=== PATIENT | female | born 1955 | race Caucasian/White ===

== ENCOUNTER → 2018-07-06 | Outpatient (CLI) | payer MEDICARE ==
[2018-07-06 08:40] LABS: Basophils # (A) 0.1 k/uL (0-0.2); Basophils % (A) 0 %; Eosinophils # (A) 0.2 k/uL (0-0.7); Eosinophils % (A) 1 %; HGB 13.5 gm/dL (11.4-16.0); Lymphocytes # (A) 3.9 k/uL (1.0-4.8); Lymphocytes % (A) 34 %; MCH 28.4 pg (25.0-35.0); MCHC 31.4 g/dL (31.0-37.0); MCV 90.4 fL (80.0-100.0); Mean Platelet Volume 7.1; Monocytes # (A) 0.7 k/uL (0-1.0); Monocytes % (A) 6 %; Neutrophils # (A) 6.6 k/uL (1.3-7.7); Neutrophils % (A) 57 %; Platelet Count 335 k/uL (150-450); RBC 4.76 m/uL (3.80-5.40); RDW 15.3 % (11.5-15.5); WBC 11.5 k/uL (3.8-10.6)
[2018-07-06 08:57] LABS: Albumin 3.5 g/dL (3.5-5.0); Calcium 9.4 mg/dL (8.4-10.2); Potassium 4.4 mmol/L (3.5-5.1); Total Bilirubin 0.4 mg/dL (0.2-1.3)
[2018-07-06 09:07] LABS: T4, Free (Free Thyroxine) 1.22 ng/dL (0.78-2.19)
[2018-07-06 16:25] LABS: Vitamin D 25 Hydroxy 26.6 ng/mL (30.0-100.0)
[2018-07-06 19:10] LABS: Hemoglobin A1C 5.8 % (4.0-6.0)
== END | disposition home or self-care (01) ==
LOC: LABWHC1 07:42
PROVIDERS: ATTEND Family Medicine
DX: E03.9 Hypothyroidism, unspecified (principal); E56.9 Vitamin deficiency, unspecified; M54.5 Low back pain; Z13.228 Encounter for screening for other metabolic disorders; Z13.220 Encounter for screening for lipoid disorders
CPT/HCPCS: 36415; 80053; 80061; 82306; 82607; 83036; 84439; 84443; 85025

== ENCOUNTER → 2018-07-26 | Outpatient (CLI) | payer MEDICARE ==
--- NOTE | 2018-07-27 11:00 | MM ---
Reason for exam: screening (asymptomatic). Last mammogram was performed 3 years and 4 months ago. History: Patient is postmenopausal. Physical Findings: A clinical breast exam by your physician is recommended on an annual basis and results should be correlated with mammographic findings. MG 3D Screening Mammo W/Cad Bilateral CC and MLO view(s) were taken. Prior study comparison: April 05, 2015, bilateral MG diagnostic mammo w CAD LOKESH. April 19, 2014, right breast MG work up mamm w CAD RT. There are scattered fibroglandular densities. There is a stable right upper outer quadrant mass back to 2013. There are benign appearing round calcifications bilaterally. No suspicious abnormality. No significant changes when compared with prior studies. ASSESSMENT: Benign, BI-RAD 2 RECOMMENDATION: Routine screening mammogram of both breasts in 1 year.
--- NOTE | 2018-07-27 11:51 | BD ---
EXAMINATION TYPE: Axial Bone Density DATE OF EXAM: 07/26/2018 COMPARISON: NONE CLINICAL HISTORY: Postmenopausal female. Osteoporosis screening. Height: 5 FT 1IN Weight: 209 FRAX RISK QUESTIONS: Family History (Parent hip fracture): YES RISK FACTORS HISTORY OF: Surgery to Spine/Hip(right/left)/Wrist (right/left): LUMBAR SURG When: 2000Diet low in dairy products/other sources of calcium: Postmenopausal woman: AGE 53 MEDICATIONS: Thyroid Medications: YES Which medication: LEVOTHYROXINE How Lon YEARS Additional Medications: LEVOTHYROXINE ,MIHAI, B12 D3 Additional History: EXAM MEASUREMENTS: Bone mineral density about the R hip (g/cm2): 1.070 Bone mineral density about the L hip (g/cm2): 0.974 T Score values are as follows: -----R Neck: 0.2 -----L Neck: -0.5 -----R Total: 1.2 -----L Total: 1.2 BASELINE Bone mineral density about the L Wrist (g/cm2): 0.698 T Score values are as follows: -----Dist. R+U: 0.9 -----Prox. R+U: 0.0 -----Radius total: 0.4 BASELINE IMPRESSION: Normal (Values between +1 and -1 indicate normal bone mass). Consider repeating this study in 5 year s or sooner if there is some new clinical indication. NOTE: T-SCORE=SD OF THE YOUNG ADULT MEAN.
== END ==
LOC: RADMAMWWP 14:25
PROVIDERS: ATTEND Family Medicine
DX: Z12.31 Encounter for screening mammogram for malignant neoplasm of breast (principal); M89.9 Disorder of bone, unspecified; N95.1 Menopausal and female climacteric states
CPT/HCPCS: 77063; 77067; 77080

== ENCOUNTER → 2018-10-05 | Outpatient (CLI) | payer MEDICARE | LOC: LABWHC1 10:24 | PROVIDERS: ATTEND Otolaryngology | DX: J30.89 Other allergic rhinitis (principal) | CPT/HCPCS: 36415 ==

== ENCOUNTER → 2018-10-20 | Outpatient (CLI) | payer MEDICARE ==
--- NOTE | 2018-10-20 08:51 | CT ---
EXAMINATION TYPE: CT neck chest w con DATE OF EXAM: 10/20/2018 COMPARISON: none HISTORY: Hoarse voice. CT DLP: 1242 mGycm CONTRAST: CT scan of the neck is performed with IV Contrast, patient injected with 100 mL of Isovue 300. Contrast enhanced CT of the neck was performed from the skull base through the lung apices. AIRWAY: The supraglottic, glottic, and subglottic portions of the airway appear patent and free of mass. SALIVARY GLANDS: The submandibular and parotid glands are free of mass or inflammatory process. THYROID GLAND: No nodules or masses seen. LYMPH NODES: No adenopathy seen greater than 1cm. LUNG APICES: No nodule or mass is seen. OTHER: Vascular structures are patent. No significant degenerative change of the cervical spine. N o abscess seen. IMPRESSION: No significant abnormality to account for the patient's symptoms. EXAMINATION TYPE: CT neck chest w con DATE OF EXAM: 10/20/2018 COMPARISON: None HISTORY: Hoarse voice. CT DLP: 1242 mGycm Automated exposure control for dose reduction was used. CONTRAST: CT scan of the chest is performed with IV Contrast, patient injected with 100 mL of Isovue 300. FINDINGS: LUNGS: Mild upper lobe emphysematous changes identified. Azygos lobe and fissure noted. The lungs are grossly clear, there is no concerning parenchymal mass or nodule identified. There is no pleural e ffusion or pneumothorax seen. The tracheobronchial tree is patent. MEDIASTINUM: There are no greater than 1 cm hilar or mediastinal lymph nodes. No pericardial effusi on is seen. Thoracic aorta is of normal caliber. The heart is not enlarged. UPPER ABDOMEN: Fatty hepatic infiltration. Scattered hepatic cysts. OTHER: No additional significant abnormality is seen.
== END ==
LOC: RADCTMAIN 07:08
PROVIDERS: ATTEND Otolaryngology
DX: R49.0 Dysphonia (principal)
CPT/HCPCS: 82565; 84520; 70491; 71260; 36415; Q9967

== ENCOUNTER → 2019-01-30 | Outpatient (CLI) | payer MEDICARE ==
[2019-01-30 10:42] LABS: Basophils # (A) 0.1 k/uL (0-0.2); Basophils % (A) 1 %; Eosinophils # (A) 0.3 k/uL (0-0.7); Eosinophils % (A) 4 %; HCT 46.5 % (34.0-46.0); HGB 14.8 gm/dL (11.4-16.0); Lymphocytes # (A) 2.5 k/uL (1.0-4.8); Lymphocytes % (A) 34 %; MCHC 31.9 g/dL (31.0-37.0); MCV 91.1 fL (80.0-100.0); Mean Platelet Volume 6.6; Monocytes # (A) 0.5 k/uL (0-1.0); Monocytes % (A) 6 %; Neutrophils % (A) 54 %; Platelet Count 297 k/uL (150-450); RBC 5.11 m/uL (3.80-5.40); RDW 14.9 % (11.5-15.5); WBC 7.5 k/uL (3.8-10.6)
[2019-01-30 16:44] LABS: T4, Free (Free Thyroxine) 1.4 ng/dL (0.80-1.80)
== END ==
LOC: LABWHC1 09:14
PROVIDERS: ATTEND Physical Medicine & Rehabilitation
DX: Z01.812 Encounter for preprocedural laboratory examination (principal); J06.9 Acute upper respiratory infection, unspecified; E03.9 Hypothyroidism, unspecified; M85.9 Disorder of bone density and structure, unspecified; M75.41 Impingement syndrome of right shoulder; N28.9 Disorder of kidney and ureter, unspecified
CPT/HCPCS: 36415; 82565; 82607; 84439; 84443; 84520; 85025

== ENCOUNTER → 2020-08-20 | Outpatient (CLI) | payer MEDICARE, OTHER ==
--- NOTE | 2020-08-20 13:54 | CT ---
EXAMINATION TYPE: CT abdomen pelvis w con DATE OF EXAM: 08/20/2020 COMPARISON: None HISTORY: Hematuria CT DLP: 2252.5 mGycm Automated exposure control for dose reduction was used. TECHNIQUE: Helical acquisition of images was performed from the lung bases through the pelvis. CONTRAST: Performed without Oral Contrast and with IV Contrast, patient injected with 100 mL of Isovue 300. FINDINGS: LUNG BASES: Normal. LIVER: Too small to characterize hypodense lesions of the liver, most likely hepatic cysts. BILIARY SYSTEM: Normal. PANCREAS: Normal. SPLEEN: Normal. ADRENALS: Normal. KIDNEYS: No hydronephrosis or hydroureter bilaterally. There are bilateral peripelvic renal cysts. To o small to characterize hypodense lesions of the right kidney. The ureters demonstrate no evidence of urothelial thickening or dilatation. BOWEL: No obstruction or thickening. Colonic diverticulosis. No acute diverticulitis. Normal appendi x. PERITONEUM: No pneumoperitoneum. No free fluid. LYMPH NODES: No lymphadenopathy. Nonenlarged lymph nodes within the left lower quadrant adjacent to the sigmoid colon are seen (4:58), measuring up to 5 mm. PELVIS: Normal. VASCULATURE: No abdominal aortic aneurysm. MUSCULOSKELETAL: Degenerative changes of the spine. IMPRESSION: 1. No findings to explain patient's hematuria. No hydroureteronephrosis. 2. Bilateral peripelvic renal cysts, and too small to characterize hypodense lesions on the right. 3. Colonic diverticulosis. No acute diverticulitis. Numerous nonenlarged left lower quadrant lymph n odes along the sigmoid colon may be reactive to extensive diverticular disease. Consider correlation with colonoscopy.
== END | disposition home or self-care (01) ==
LOC: RADCTMAIN 08:47
PROVIDERS: ATTEND Family Medicine
DX: K57.30 Diverticulosis of large intestine without perforation or abscess without bleeding (principal); N28.1 Cyst of kidney, acquired; K92.89 Other specified diseases of the digestive system
CPT/HCPCS: 82565; 84520; 74177; 36415; Q9967

== ENCOUNTER → 2021-09-03 | Outpatient (CLI) | payer MEDICARE, OTHER ==
--- NOTE | 2021-09-04 11:51 | MM ---
Reason for exam: screening (asymptomatic). Last mammogram was performed 3 years and 1 month ago. History: Patient is postmenopausal. Physical Findings: A clinical breast exam by your physician is recommended on an annual basis and results should be correlated with mammographic findings. MG 3D Screening Mammo W/Cad Bilateral CC and MLO view(s) were taken. Prior study comparison: July 26, 2018, bilateral MG 3d screening mammo w/cad. April 05, 2015, bilateral MG diagnostic mammo w CAD [facility]. There are scattered fibroglandular densities. No significant changes when compared with prior studies. ASSESSMENT: Benign, BI-RAD 2 RECOMMENDATION: Routine screening mammogram of both breasts in 1 year.
== END | disposition home or self-care (01) ==
LOC: RADMAMWWP 09:37
PROVIDERS: ATTEND Family Medicine
DX: Z12.31 Encounter for screening mammogram for malignant neoplasm of breast (principal); Z78.0 Asymptomatic menopausal state
CPT/HCPCS: 77063; 77067

== ENCOUNTER → 2021-09-25 | Outpatient (CLI) | payer MEDICARE, OTHER ==
--- NOTE | 2021-09-25 13:48 | BD ---
EXAMINATION TYPE: Axial Bone Density DATE OF EXAM: 09/25/2021 COMPARISON: 07.26.2018 CLINICAL HISTORY: 66 YR OLD FEMALE......ICD-10 CODE: M89.9 DISORDER OF BD, N95.1 MENOPAUSAL Height: 61 Weight: 214 FRAX RISK QUESTIONS: Glucocorticoids (More than 3mos): YES (Ex: prednisone, prednisolone, methylprednisolone, dexamethasone, and hydrocortisone). History of Fracture in Adulthood: YES RISK FACTORS HISTORY OF: HX OF LT ANKLE FX, Surgery to Spine FOR DISCS ONLY, AND NOW STEROIDAL INJECTIONS Postmenopausal woman: YES AT ABOUT 53 YRS OLD Hyperparathyroidism: NO Adrenal Insufficiency: NO MEDICATIONS: Prednisone or other steroids: INJECTIONS INTO SPINE, STEROIDAL FOR ABOUT 3 YRS NOW Thyroid Medications: YES, SYNTHROID FOR OVER 20 YRS NOW Additional Medications: NOTHING ADDITIONAL TO ADD HERE EXCEPT MEDS FOR SINUS INFECTION AT PRESENT, A NTIBIOTIC, PREDNISONE, Additional History: BULGING SPINAL DISCS, NSAIDS, INJECTIONS IN SHOULDER ALSO, OSTEOARTHRITIS EXAM MEASUREMENTS: Bone mineral densitometry was performed using the rPath System. Bone mineral density as measured about the Lumbar spine is: ----- L1-L4(G/cm2): 1.148 T Score Values are as follows: ----- L1: -0.7 ----- L2: -1.2 ----- L3: 0.0 ----- L4: 0.3 ----- L1-L4: -0.3 Bone mineral density FIRST DEXA STUDY OF HER SPINE, OMITTED ON THE 07.26.2018 STUDY Bone mineral density about the R hip (g/cm2): 1.162 Bone mineral density about the L hip (g/cm2): 1.157 T Score values are as follows: -----R Neck: 0.1 -----L Neck: -0.5 -----R Total: 1.2 -----L Total: 1.2 Bone mineral density has: Increased 0.1% since study of: 07.26.2018 FRAX%s: THERE IS A 17.4% CHANCE FOR A MAJOR OSTEOPOROTIC FX AND A 1.1% FOR HIPS.......PROBABILITY FOR FX IN 10 YRS TIME IMPRESSION: No evidence for osteoporosis or osteopenia. NOTE: T-SCORE=SD OF THE YOUNG ADULT MEAN.
== END | disposition home or self-care (01) ==
LOC: RADBDWWP 10:34
PROVIDERS: ATTEND Family Medicine
DX: Z78.0 Asymptomatic menopausal state (principal)
CPT/HCPCS: 77080

== ENCOUNTER → 2022-02-18 | Day surgery (SDC) | payer MEDICARE ==
[2022-02-16 08:54] VITALS: BMI 38.4
[~2022-02-18] MED LIST: LACTATED RINGERS 1,000 ML IV ONE; LACTATED RINGERS 1,000 ML IV SCH; PROPOFOL 10 MG/ML 20 ML VIAL IV ONE
[2022-02-18 10:55] VITALS: RESP 16; TEMP 97.1
--- NOTE | 2022-02-18 11:10 | P.PCN ---
Date of Procedure: 02/18/22 Procedure(s) Performed: BRIEF HISTORY: Patient is a 66-year-old pleasant white female scheduled for an elective colonoscopy as a part of evaluation of Hemoccult-positive stool. Her mother was dilated with colon cancer at age 80. PROCEDURE PERFORMED: Colonoscopy. PREOPERATIVE DIAGNOSIS: Hemoccult-positive stool and family history of colon cancer. IV sedation per Anesthesia. PROCEDURE: After informed consent was obtained, the patient, was brought into the endoscopy unit. IV sedation was administered by Anesthesia under continuous monitoring. Digital rectal examination was normal. Initially the Olympus CF-160 flexible video colonoscope was then inserted in the rectum, gradually advanced into the cecum with mild to moderate difficulty. Careful examination was performed as the scope was gradually being withdrawn. Ileocecal valve and the appendiceal orifice were visualized and appeared normal. Prep was excellent. Mucosa of the cecum, ascending colon, transverse colon, descending colon, sigmoid colon, and rectum appeared normal. Moderate left-sided diverticulosis. Retroflexion was performed in the rectum and no lesions were seen. The patient tolerated the procedure well. IMPRESSION: Normal-appearing colon from rectum to cecum with no evidence of colorectal neoplasia . Moderate left-sided diverticulosis RECOMMENDATIONS: Findings of this examination were discussed with the patient well as her family.. She was advised to have a repeat screening colonoscopy in 5 years from now because of the family history of colon cancer.
[2022-02-18 11:33] VITALS: BP 136/88; PULSE 71
== END ==
LOC: ORWHC2ENDO 09:40
PROVIDERS: ATTEND Internal Medicine Gastroenterology
DX: K57.30 Diverticulosis of large intestine without perforation or abscess without bleeding (principal); R19.5 Other fecal abnormalities; Z80.0 Family history of malignant neoplasm of digestive organs; Z79.1 Long term (current) use of non-steroidal anti-inflammatories (NSAID); Z79.890 Hormone replacement therapy; Z79.899 Other long term (current) drug therapy; E07.9 Disorder of thyroid, unspecified; M19.90 Unspecified osteoarthritis, unspecified site
CPT/HCPCS: 45378; J2704

== ENCOUNTER → 2022-04-21 | Outpatient (CLI) | payer MEDICARE ==
--- NOTE | 2022-04-21 10:04 | CT ---
EXAMINATION TYPE: CT chest w con DATE OF EXAM: 04/21/2022 COMPARISON: 10/20/18 HISTORY: SOB and hoarseness in voice CT DLP: 496.6 mGycm Automated exposure control for dose reduction was used. CONTRAST: CT scan of the chest is performed with IV Contrast, patient injected with 70 ML mL of Isovue 300. FINDINGS: LUNGS:Mild upper lobe emphysematous changes identified. Azygos lobe and fissure noted. The lungs are grossly clear, there is no concerning parenchymal mass or nodule identified. There is no pleural ef fusion or pneumothorax seen. The tracheobronchial tree is patent. MEDIASTINUM: There are no greater than 1 cm hilar or mediastinal lymph nodes. No pericardial effusi on is seen. Thoracic aorta is of normal caliber. The heart is not enlarged. UPPER ABDOMEN: A lateral parapelvic cysts are redemonstrated. Mild hepatic steatosis. Small sliding-t ype hiatal hernia. OTHER: No additional significant abnormality is seen. IMPRESSION: 1. Mild emphysematous change. No evidence for focal infiltrate or pulmonary nodule/mass.
== END | disposition home or self-care (01) ==
LOC: RADCTMAIN 07:52
PROVIDERS: ATTEND Family Medicine
DX: J43.9 Emphysema, unspecified (principal)
CPT/HCPCS: 71260; Q9967

== ENCOUNTER → 2023-03-09 | Outpatient (CLI) | payer MEDICARE ==
--- NOTE | 2023-03-09 16:07 | MR ---
EXAMINATION TYPE: MR knee LT wo con DATE OF EXAM: 03/09/2023 COMPARISON: NONE HISTORY: Left knee pain outer with locking and swelling for one year. TECHNIQUE: Multiplanar, multisequence images of the knee is performed without IV contrast. FINDINGS: MEDIAL MENISCUS: Triangular shaped increased signal posterior horn does not extend to articular surfa ce. LATERAL MENISCUS: Truncated appearance anterior horn with abnormal signal extending to articular surf joseph. Horizontal and triangular increased signal posterior horn does not definitively extend to articu lar surface CRUCIATE LIGAMENTS: The anterior and posterior cruciate ligaments are intact and unremarkable. COLLATERAL LIGAMENTS: The medial collateral ligament and lateral collateral ligament complex are inta ct. There is fluid signal surrounding the medial collateral ligament. There is thickening and increas ed signal at the proximal biceps femoris. EXTENSOR MECHANISM: Visualized quadriceps and patellar tendons are intact. EFFUSION: Large size suprapatellar joint effusion. POPLITEAL CYST: Tiny popliteal/parikh cyst. TRICOMPARTMENT SPACES: Moderate to severe narrowing with moderate spurring medial tibiofemoral compar tment. More mild to moderate narrowing and mild spurring patellofemoral and lateral tibiofemoral comp artments. CARTILAGE: Significant cartilaginous loss medial tibiofemoral compartment with areas of full-thicknes s loss noted. BONE MARROW SIGNAL: Areas of diminished T1 and increased T2 signal involving the medial tibiofemoral compartment articular surface. OTHER: No additional significant abnormality is appreciated. IMPRESSION: 1. Tricompartment degenerative changes that are fairly advanced in appearance medial tibiofemoral com partment presumed product of osteoarthritis. 2. Large suprapatellar joint effusion. 3. Mild MCL sprain injury. 4. Chronic LCL sprain injury. 5. Tiny popliteal cyst. 6. Full thickness tear anterior horn lateral meniscus. 7. Intrasubstance tear posterior horn medial meniscus and posterior horn lateral meniscus.
--- NOTE | 2023-03-09 16:15 | MR ---
EXAMINATION TYPE: MR knee RT wo con DATE OF EXAM: 03/09/2023 COMPARISON: NONE HISTORY: Rt knee pain under patella, swelling TECHNIQUE: Multiplanar, multisequence images of the knee is performed without IV contrast. FINDINGS: MEDIAL MENISCUS: Triangular-shaped signal posterior horn does not extend to articular surface. LATERAL MENISCUS: Some horizontal increased signal central body does not extend to articular surface but oblique component anterior horn sagittal image 27 does. CRUCIATE LIGAMENTS: The anterior and posterior cruciate ligaments are intact and unremarkable. COLLATERAL LIGAMENTS: The medial collateral ligament and lateral collateral ligament complex are inta ct and unremarkable. EXTENSOR MECHANISM: Visualized quadriceps and patellar tendons are intact. Some intermediate signal p roximal patellar pole level. EFFUSION: [id number] sized suprapatellar joint effusion. POPLITEAL CYST: Moderate size septated popliteal/parikh cyst. TRICOMPARTMENT SPACES: Mild to moderate tricompartment joint space loss and mild spurring. CARTILAGE: Chondromalacia patella with some cartilaginous loss along the superior posterior aspect of the patellar pole. BONE MARROW SIGNAL: No focal abnormal marrow signal is appreciated. OTHER: No additional significant abnormality is appreciated. IMPRESSION: 1. Intrasubstance tear posterior horn medial meniscus. 2. Full-thickness tear anterior horn lateral meniscus. Intrasubstance tear central body lateral menis cus. 3. Mild to moderate tricompartment degenerative changes as detailed above. 4. Small to moderate-sized suprapatellar joint effusion. 5. Moderate-sized septated popliteal cyst. 6. Tendinosis of the proximal patellar tendon.
== END | disposition home or self-care (01) ==
LOC: RADMRIMAIN 13:58
PROVIDERS: ATTEND Orthopaedic Surgery
DX: S83.241A Other tear of medial meniscus, current injury, right knee, initial encounter (principal); S83.242A Other tear of medial meniscus, current injury, left knee, initial encounter; S83.281A Other tear of lateral meniscus, current injury, right knee, initial encounter; S83.282A Other tear of lateral meniscus, current injury, left knee, initial encounter; M25.462 Effusion, left knee; S83.412A Sprain of medial collateral ligament of left knee, initial encounter; S83.411A Sprain of medial collateral ligament of right knee, initial encounter; M17.0 Bilateral primary osteoarthritis of knee; M71.21 Synovial cyst of popliteal space [Baker], right knee; M71.22 Synovial cyst of popliteal space [Baker], left knee

== ENCOUNTER → 2023-06-16 | Outpatient (CLI) | payer MEDICARE ==
[2023-06-16 13:05] LABS: INR 0.9 (<1.2); Partial Thromboplastin Time 23.8 sec (22.0-30.0); Prothrombin Time 9.8 sec (9.0-12.0)
[2023-06-16 15:25] LABS: HCT 45.3 % (37.2-46.3); HGB 13.9 d/dL (12.0-15.0); MCHC 30.7 d/dL (32.0-37.0); MCV 84.7 FL (80.0-97.0); Mean Platelet Volume 9.8 FL (9.5-12.2); NRBC Per 100 WBC 0 X 10*3/uL (0.00-0.01); Platelet Count 355 X 10*3/uL (140-440); RBC 5.35 X 10*6/uL (4.10-5.20); RDW 17.2 % (11.5-14.5); WBC 9.64 X 10*3/uL (4.50-10.00)
[2023-06-16 15:26] LABS: Eosinophils # (A) 0.47 X 10*3/uL (0.04-0.35); Eosinophils % (A) 4.9 %; Lymphocytes # (A) 2.47 X 10*3/uL (0.90-5.00); Lymphocytes % (A) 25.6 %; Monocytes # (A) 0.89 X 10*3/uL (0.20-1.00); Monocytes % (A) 9.2 %; Neutrophils # (A) 5.68 X 10*3/uL (1.80-7.70)
[2023-06-16 15:47] LABS: ALT 17 U/L (8-44); AST 22 U/L (13-35); Albumin 4.3 d/dL (3.8-4.9); Albumin/Globulin Ratio 1.79 Ratio (1.60-3.17); Alkaline Phosphatase 106 U/L (41-126); BUN/Creat Ratio 17.78 Ratio (12.00-20.00); Bilirubin, Conjugated <0.20 mg/dL (0.20-0.40); Bilirubin,Unconjugated >0.10 mg/dL (0.20-1.00); Carbon Dioxide 27.4 mmol/L (21.6-31.8); Chloride 104 mmol/L (96-109); Globulin 2.4 d/dL (1.6-3.3); Glucose 115 mg/dL (70-110); Potassium 4.4 mmol/L (3.5-5.5); Sodium 142 mmol/L (135-145); Total Bilirubin 0.3 mg/dL (0.3-1.2); Total Protein 6.7 d/dL (6.2-8.2)
[2023-06-16 18:00] LABS: Prealbumin 17.5 mg/dL (18.0-42.0)
== END | disposition home or self-care (01) ==
LOC: LABWHC1 11:26
PROVIDERS: ATTEND Orthopaedic Surgery
DX: Z01.89 Encounter for other specified special examinations (principal); Z13.1 Encounter for screening for diabetes mellitus; Z79.899 Other long term (current) drug therapy; K76.9 Liver disease, unspecified
CPT/HCPCS: 36415; 80048; 80076; 82306; 82985; 83036; 84134; 84466; 85025; 85610; 85730; 86850; 86900; 86901; 87070

== ENCOUNTER → 2023-08-10 | Outpatient (CLI) | payer MEDICARE ==
--- NOTE | 2023-08-10 10:03 | US ---
EXAMINATION TYPE: US abdomen complete DATE OF EXAM: 08/10/2023 COMPARISON: NONE CLINICAL INDICATION: Female, 68 years old with history of R10.11 RIGHT UPPER QUADRANT PAIN; ruq pain TECHNIQUE: Multiple sonographic images of the abdomen are obtained. FINDINGS: EXAM MEASUREMENTS: Liver Length: 18.9 cm Gallbladder Wall: .3 cm CBD: .4 cm Spleen: 9 cm Right Kidney: 9.6 x 5.5 x 3.7 cm Left Kidney: 10.1 x 4.4 x 4.5 cm LINUX SYSTEM ADMIN NOTES: Pancreas: Tail obscured by overlying bowel gas Liver: Increased attenuation Gallbladder: No stones seen Evidence for sonographic Mcbride's sign: No CBD: wnl Spleen: wnl Right Kidney: Hydronephrosis visualized Left Kidney: Hydronephrosis visualized Upper IVC: wnl Abd Aorta: wnl The liver is homogenous. The intrahepatic portion of the IVC and proximal abdominal aorta are within normal limits. There is no evidence of cholelithiasis. Common bile duct is unremarkable. The visu alized portions of the pancreas are homogenous. The spleen is unremarkable. No renal lesions are se en. IMPRESSION: 1. Hepatic steatosis. 2. Mild hydronephrosis is seen bilaterally of uncertain etiology.
== END | disposition home or self-care (01) ==
LOC: RADUSWWP 08:12
PROVIDERS: ATTEND Family Medicine
DX: K76.0 Fatty (change of) liver, not elsewhere classified (principal); N13.30 Unspecified hydronephrosis; R10.11 Right upper quadrant pain
CPT/HCPCS: 76700

== ENCOUNTER → 2023-09-10 | Outpatient (CLI) | payer MEDICARE ==
--- NOTE | 2023-09-10 09:08 | NM ---
EXAMINATION TYPE: NM hepatobiliary w EF DATE OF EXAM: 09/10/2023 9:01 AM COMPARISON: Ultrasound 08/10/2023 CLINICAL INDICATION:Female, 68 years old with history of R10.11 RIGHT UPPER QUADRANT PAIN; TECHNIQUE: The patient was given 4.9 mCi of Technetium 99m-Mebrofenin as a radiotracer and multiple scintigraphic images were obtained of the abdomen. Gallbladder function was also assessed after the a dministration of 4 mL of Sincalide (cholecystokinin) and additional scintigraphic images were obtaine d of the abdomen. A region of interest was drawn over the gallbladder and a timing activity curve was generated. The gallbladder ejection fraction was calculated. FINDINGS: Normal uptake of radiotracer was identified within the liver with excretion into the hepatic and comm on biliary ducts. There was normal progressive washout of the liver over the course of the study. Rad iotracer uptake within the gallbladder at 6 minutes as well as small bowel activity was identified at 18 minutes. Maximum calculated gallbladder ejection fraction is: 25% at 30 minutes (Normal gallbladder ejection fraction is > 35%) IMPRESSION: Low ejection fraction suggestive of impaired gallbladder emptying and gallbladder dysfunction.]
== END | disposition home or self-care (01) ==
LOC: RADNMMAIN 06:51
PROVIDERS: ATTEND Family Medicine
DX: R10.11 Right upper quadrant pain (principal)
CPT/HCPCS: 78226; A9537

== ENCOUNTER → 2024-09-19 | Outpatient (CLI) | payer MEDICARE ==
--- NOTE | 2024-09-20 17:08 | MM ---
Reason for Exam: Screening (asymptomatic). Last mammogram was performed 3 year(s) and 1 month(s) ago. Patient History: Menarche at age 10. First Full-Term at age 16. Postmenopausal. Risk Values: Shaylee 5 year model risk: 1.3%. NCI Lifetime model risk: 3.5%. Prior Study Comparison: 04/05/2015 Bilateral Diagnostic Mammogram, [facility]. 07/26/2018 Bilateral Screening Mammogram, [facility]. 09/03/2021 Bilateral Screening Mammogram, [facility]. Tissue Density: There are scattered areas of fibroglandular density. Findings: Analyzed By CAD. Small area of grouped calcifications have developed centrally in the left breast middle depth for which further magnification views are recommended. Chronic nodularity on the right. Otherwise, no significant change. Overall Assessment: Incomplete: need additional imaging evaluation, BI-RAD 0 Management: Special View Mammogram of the left breast. [facility] will attempt to contact patient to return for supplemental views. [facility], , 09/20/2024 5:05 PM. Electronically signed and approved by: Padmaja Vogt M.D. Radiologist
== END | disposition home or self-care (01) ==
LOC: RADMAMWWP 09:42
PROVIDERS: ATTEND Family Medicine
DX: Z12.31 Encounter for screening mammogram for malignant neoplasm of breast (principal); R92.323 Mammographic fibroglandular density, bilateral breasts; Z78.0 Asymptomatic menopausal state
CPT/HCPCS: 77063; 77067

== ENCOUNTER → 2024-10-02 | Outpatient (CLI) | payer MEDICARE ==
--- NOTE | 2024-10-02 11:32 | MM ---
Reason for Exam: Additional evaluation requested from abnormal screening. Last screening mammogram was performed less than 1 month ago. Patient History: Menarche at age 10. First Full-Term at age 16. Postmenopausal. Risk Values: Shaylee 5 year model risk: 1.3%. NCI Lifetime model risk: 3.5%. Prior Study Comparison: 04/05/2015 Bilateral Diagnostic Mammogram, [facility]. 07/26/2018 Bilateral Screening Mammogram, [facility]. 09/03/2021 Bilateral Screening Mammogram, [facility]. 09/19/2024 Bilateral MG 3D screening mammo w/cad, [facility]. Tissue Density: Left: The breasts are almost entirely fatty. Findings: Analyzed By CAD. Indeterminate heterogenous cluster of microcalcifications upper outer left breast 8 cm from the nipple with the cluster measuring approximately 3 mm. Tissue diagnosis is recommended. Overall Assessment: Suspicious, BI-RAD 4 Management: Stereotactic Core Biopsy of the left breast. . Results were given to the patient verbally at the time of exam. Patient should continue monthly self-breast exams. A clinical breast exam by your physician is recommended on an annual basis. This exam should not preclude additional follow-up of suspicious palpable abnormalities. Note on Shaylee scores and lifetime risk: 1. A Shaylee score greater than 3% is considered moderate risk. If this is the case, consider specialist referral to assess eligibility for a risk reducing agent. 2. If overall lifetime risk for the development of breast cancer is 20% or higher, the patient may qualify for future screening with alternating mammogram and breast MRI. [facility], , 10/02/2024 11:28 AM. Electronically signed and approved by: Pascual Mccallum M.D. Radiologis
== END | disposition home or self-care (01) ==
LOC: RADMAMWWP 10:36
PROVIDERS: ATTEND Family Medicine
DX: R92.8 Other abnormal and inconclusive findings on diagnostic imaging of breast (principal); Z78.0 Asymptomatic menopausal state; R92.312 Mammographic fatty tissue density, left breast
CPT/HCPCS: 77065; G0279; 77061

== ENCOUNTER → 2024-11-16 | Outpatient (CLI) | payer MEDICARE ==
--- NOTE | 2024-11-16 09:30 | CTL ---
EXAMINATION TYPE: CT Low Dose Lung DATE OF EXAM ORDERED: 11/16/2024 COMPARISON: CT chest 04/21/2022, CT neck chest 10/20/2018 CLINICAL INDICATION: Female, 69 years old with history of Z12.2 LUNG CANCER SCREENING; [facility], [facility], Lung cancer screening, History of Smoking/tobacco use. TECHNIQUE: Low dose computed tomography scan was performed through the chest at 1 mm thick sections a nd reconstructed images in multiple planes at 1 mm and [address] DLP: 92.[address] CTDI: 2.4 mGy Automated exposure control for dose reduction was used. CT DIAGNOSTIC QUALITY: Satisfactory FINDINGS: Nodules: No clinically significant pulmonary nodules. LUNGS: COPD: Severity: Mild Fibrosis: Severity: None Lymph nodes: None Other findings: Incidental azygous fissure. Minimal biapical pleural thickening. RIGHT PLEURAL SPACE: Effusion: None Calcification: None Thickening: None Pneumothorax: None LEFT PLEURAL SPACE: Effusion: None Calcification: None Thickening: None Pneumothorax: None HEART: Heart Size: Normal Coronary Calcification: None Pericardial Effusion: None OTHER FINDINGS: Upper abdomen: Tiny hiatal hernia. Partial visualization of left hydronephrosis again. Bony thorax: Multilevel anterior osteophytosis. Supraclavicular region: None Other: Atherosclerotic calcification of the aorta and its branches. IMPRESSION: 1. No clinically significant pulmonary nodules. 2. Mild emphysematous changes. 3. Partial visualization of left-sided hydronephrosis again. CT LUNG RAD AND CT CHEST RECOMMENDATION: Lung-Rad 1 Negative: Continue annual screening with LDCT in 12 months. S Modifier (other clinically significant findings): None [facility], , 11/16/2024 9:28 AM
== END | disposition home or self-care (01) ==
LOC: RADCTMAIN 08:38
PROVIDERS: ATTEND Family Medicine
DX: Z12.2 Encounter for screening for malignant neoplasm of respiratory organs (principal); J43.9 Emphysema, unspecified; N13.39 Other hydronephrosis; I70.0 Atherosclerosis of aorta; K44.9 Diaphragmatic hernia without obstruction or gangrene; Z87.891 Personal history of nicotine dependence
CPT/HCPCS: 71271

== ENCOUNTER → 2024-11-30 | Day surgery (SDC) | payer MEDICARE ==
[2024-11-30 10:13] VITALS: BP 112/76; PULSE 65; RESP 16; TEMP 97.6
--- NOTE | 2024-12-06 11:41 | MM ---
Risk Values: Shaylee 5 year model risk: 1.3%. NCI Lifetime model risk: 3.5%. Prior Study Comparison: 09/03/2021 Bilateral Screening Mammogram, [facility]. 09/19/2024 Bilateral MG 3D screening mammo w/cad, [facility]. 10/02/2024 Left MG 3D work up w/cad , [facility]. Pathology Description: Marker Left Behind. Specimen Radiograph. Calcium Found: Yes Approach: Lateral to Medial Needle Type: Eviva Cores: 4 Skin Nicks: 1 Gauge: 9 The small grouped, centrally located microcalcifications in the upper outer quadrant are identified and targeted for biopsy. The procedure of stereotactic guided core biopsy was explained to the patient. Benefits, alternatives, and risks were discussed. An informed consent was then obtained. The [facility] pathway for biopsy was chosen. Shortness pathway was a lateral approach. A vacuum assisted biopsy gun was used to obtain 4 core samples. The patient tolerated the procedure well without any immediate complication. The patient was kept in the radiology department for short stay after the procedure and then discharged home in stable condition. Targeted calcifications are identified in specimen mammogram. Patient was taken to a dedicated mammography suite for post procedure clip placement verification. Post biopsy mammogram shows the clip to appear in satisfactory position relative to the targeted area of concern on the preprocedure images, possibly with minimal lateral migration. IMPRESSION: SUCCESSFUL, UNCOMPLICATED STEREOTACTIC GUIDED CORE BIOPSY OF CENTRALLY LOCATED MICROCALCIFICATIONS IN THE LEFT BREAST. Pathology Results: Result: Benign, Fibrocystic change. Pathology and radiology were reviewed. Findings are concordant. LEFT BREAST, STEREOTACTIC CORE BIOPSY: Benign fibrocystic change with fibroadenomatoid stromal hyperplasia and microcalcification. Overall Assessment: Benign Management: Diagnostic Mammogram of the left breast in 6 months. Electronically signed and approved by: Padmaja Vogt M.D. Radiologist
== END ==
LOC: RADMAMWWP 09:49
PROVIDERS: ATTEND Family Medicine
DX: N60.12 Diffuse cystic mastopathy of left breast (principal)
CPT/HCPCS: 88305; 19081; A4648; J2003